=== PATIENT | male | born 1945 | race Caucasian/White ===

== ENCOUNTER → 2017-04-23 | Outpatient (CLI) | payer OTHER, MEDICARE ==
[2017-04-23 16:02] LABS: CHOLESTEROL/HDL RATIO 1.8
== END | disposition home or self-care (01) ==
LOC: C.LAB1850 14:29
PROVIDERS: ATTEND Internal Medicine Cardiovascular Disease
DX: I10 Essential (primary) hypertension (principal); E78.5 Hyperlipidemia, unspecified

== ENCOUNTER → 2017-10-24 | Outpatient (CLI) | payer OTHER, MEDICARE ==
[2017-10-24 09:55] LABS: CHOLESTEROL/HDL RATIO 2.1
== END | disposition home or self-care (01) ==
LOC: C.LAB1850 08:55
PROVIDERS: ATTEND Internal Medicine Cardiovascular Disease
DX: E78.5 Hyperlipidemia, unspecified (principal)